=== PATIENT | male | born 1985 | race Caucasian/White ===

== ENCOUNTER 2020-09-14 17:02 | Emergency (ER) | payer MEDICAID ==
[~2020-09-14] VITALS: Ht 170.2 cm; Wt 101.4 kg
--- NOTE | 2020-09-14 17:51 | NUR ---
NIL X 1
[2020-09-14] MEDS ORDERED: SODIUM CHLORIDE 0.9% 1,000ML IVBOLUS ONE (18:30)
[2020-09-14] MEDS ORDERED: SODIUM CHLORIDE FLUSH 10ML SYR IVF ONE (18:30)
--- NOTE | 2020-09-14 18:44 | NUR ---
PT BIB POV BY PT'S MOTHER. 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 PT RESTING IN [facility]. BILATERAL 18 G AC PIVS PLACED.
[2020-09-14 18:53] VITALS: BP 116/74
--- NOTE | 2020-09-14 18:53 | NUR ---
PT ALSO STATES HE "TOOK A COUPLE PILLS LAST NIGHT, I THINK THEY WERE [place]STASY AND [place] BUT I WAS PRETTY DRUNK. 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 PT RESTING IN [facility], PT REPORTS NO NEEDS AT THIS TIME.
[2020-09-14 18:58] LABS: BASOPHILS % (AUTO) 1 % (0-1); EOSINOPHILS % (AUTO) 1 % (1-7); LYMPHOCYTES % (AUTO) 18 % (22-44); MEAN CORPUSCULAR HEMOGLOBIN 28.6 pg (27.5-34.5); MONOCYTES % (AUTO) 8 % (2-9); NEUTROPHILS % (AUTO) 72 % (42-75); PLATELET COUNT 235 x10^3/uL (130-400); RED BLOOD COUNT 4.85 x10^6/uL (4.38-5.82); RED CELL DISTRIBUTION WIDTH 16.7 % (9.4-14.8)
[2020-09-14 19:02] LABS: MD MORPH REVIEW ONLY
[2020-09-14 19:10] LABS: ALBUMIN 4.1 g/dL (3.4-5.0); ANION GAP 8 mmol/L (5-15); CALCIUM 8.8 mg/dL (8.5-10.1); CHLORIDE 107 mmol/L (98-107)
[2020-09-14 19:15] LABS: ALANINE AMINOTRANSFERASE 46 U/L (12-78); ALKALINE PHOSPHATASE 96 U/L (45-117); BILIRUBIN,TOTAL 0.6 mg/dL (0.2-1.0); CREATININE 1.05 mg/dL (0.7-1.3); TOTAL PROTEIN 7.7 g/dL (6.4-8.2)
[2020-09-14 19:49] LABS: <PLATELET ESTIMATE> ADEQUATE; <PLT MORPHOLOGY> NORMAL PLT MORPH; ANISOCYTOSIS 1+; HYPOCHROMIA 1+
== END 2020-09-14 20:40 | disposition home or self-care (01) ==
LOC: ED 18:59
DX: F10.120 Alcohol abuse with intoxication, uncomplicated (principal); F15.10 Other stimulant abuse, uncomplicated; F12.10 Cannabis abuse, uncomplicated; F17.210 Nicotine dependence, cigarettes, uncomplicated; R00.0 Tachycardia, unspecified; Z72.9 Problem related to lifestyle, unspecified; Y90.0 Blood alcohol level of less than 20 mg/100 ml
CPT/HCPCS: 36415; 80053; 80307; 85025; 93005; 99284; 99406

== ENCOUNTER 2021-02-12 19:12 | Emergency (ER) | payer MEDICAID ==
[~2021-02-12] VITALS: Ht 170.2 cm; Wt 88.7 kg
[2021-02-12] MEDS ORDERED: DIPH,PERTUSS(ACELL),TET VAC/PF 0.5 ML IM-VACC ONE ×2 (20:30→21:19)
[2021-02-12 20:40] LABS: BASOPHILS % (AUTO) 1 % (0-1); EOSINOPHILS % (AUTO) 1 % (1-7); LYMPHOCYTES % (AUTO) 6 % (22-44); MEAN CORPUSCULAR HEMOGLOBIN 29.5 pg (27.5-34.5); MEAN CORPUSCULAR HGB CONC 33.5 g/dL (33.2-36.2); MEAN PLATELET VOLUME 8.5 fL (7.4-10.4); MONOCYTES % (AUTO) 5 % (2-9); NEUTROPHILS % (AUTO) 88 % (42-75); PLATELET COUNT 291 x10^3/uL (130-400); RED BLOOD COUNT 4.69 x10^6/uL (4.38-5.82); RED CELL DISTRIBUTION WIDTH 15.8 % (9.4-14.8)
[2021-02-12 20:51] LABS: ALANINE AMINOTRANSFERASE 24 U/L (12-78); ALBUMIN 3.4 g/dL (3.4-5.0); ANION GAP 8 mmol/L (5-15); CALCIUM 9.3 mg/dL (8.5-10.1); CHLORIDE 107 mmol/L (98-107); CREATININE 1.23 mg/dL (0.7-1.3)
[2021-02-12 20:53] LABS: ALKALINE PHOSPHATASE 108 U/L (45-117); BILIRUBIN,TOTAL 0.3 mg/dL (0.2-1.0); TOTAL PROTEIN 8.7 g/dL (6.4-8.2)
--- NOTE | 2021-02-12 21:16 | NUR ---
New pt from [facility] noted and PA entering room for exam now. Lab and radiology results reviewed.
[2021-02-12] MEDS ORDERED: HYDROcodone/APAP 5/325 TABLET PO ONE (21:30)
[2021-02-12] MEDS ORDERED: CLINDAMYCIN 150 MG/ML, 6ML IM ONE (21:30)
--- NOTE | 2021-02-12 21:45 | NUR ---
LLE wound dressed with 4x4 gauze and kerlex dsg.
[2021-02-12] MEDS ORDERED: CLINDAMYCIN 300 MG CAPSULE ONE (22:01)
[2021-02-12] MEDS ORDERED: HYDROcodone/APAP 5/325 TABLET ONE (22:02)
[2021-02-12] MEDS ORDERED: CLINDAMYCIN 150 MG/ML, 6ML ONE (22:06)
--- NOTE | 2021-02-12 22:10 | NUR ---
IM medication given to R and L glute sites as divided dose to keep each at 2mL injections. Aseptic technique used and PO pain med given afterwards as ordered. Pt tolerated well. Pt states understanding of d/c instructions and walked to d/c desk with steady gait.
[2021-02-12 22:16] VITALS: BP 116/72
== END 2021-02-12 22:18 | disposition home or self-care (01) ==
LOC: ED 21:27
DX: L03.116 Cellulitis of left lower limb (principal); F17.210 Nicotine dependence, cigarettes, uncomplicated
CPT/HCPCS: 36415; 80053; 85025; 90471; 90715; 93005; 96372; 99284; 99406; S0077